=== PATIENT | female | born 1945 | race Caucasian/White ===

== ENCOUNTER 2024-10-10 07:31 | Emergency (ER) | payer OTHER | END 2024-10-10 09:52 | disposition home or self-care (01) | LOC: NAV ERS 07:31 | DX: F03.90 Unspecified dementia, unspecified severity, without behavioral disturbance, psychotic disturbance, mood disturbance, and anxiety (principal); B35.6 Tinea cruris; I10 Essential (primary) hypertension; Z71.1 Person with feared health complaint in whom no diagnosis is made | CPT/HCPCS: 99284 ==